=== PATIENT | female | born 1970 | race Hispanic/Latino ===

== ENCOUNTER → 2018-04-19 | Outpatient (CLI) | payer BC | LOC: MAMMO 17:23 | PROVIDERS: ATTEND Obstetrics & Gynecology | DX: Z12.31 Encounter for screening mammogram for malignant neoplasm of breast (principal) | CPT/HCPCS: 77067 ==

== ENCOUNTER → 2019-01-25 | Outpatient (CLI) | payer BC ==
[2019-01-25 08:48] LABS: BASOPHILS % 0.4 % (0.0-1.0); EOSINOPHILS # (AUTO) 0.1 (0.0-0.4); EOSINOPHILS % 1.3 % (0.0-6.0); HEMATOCRIT 39.3 % (34.2-44.1); HEMOGLOBIN 12.8 g/dL (12.0-16.0); LYMPHOCYTES # (AUTO) 2.3 (1.0-3.2); MEAN CORPUSCULAR HEMOGLOBIN 27.9 pg (28-32); MEAN CORPUSCULAR HGB CONC 32.6 g/dL (31-35); MEAN CORPUSCULAR VOLUME 85.6 fL (81-99); MONOCYTES # (AUTO) 0.4 (0.2-0.8); NEUTROPHILS # (AUTO) 4.1 (2.1-6.9); NEUTROPHILS % 58.9 % (38.7-80.0); PLATELET COUNT 382 x10e3/uL (140-360); RED BLOOD COUNT 4.59 x10e6/uL (3.6-5.1); RED CELL DISTRIBUTION WIDTH 13.6 % (11.7-14.4)
[2019-01-25 08:51] LABS: BILIRUBIN,URINE NEGATIVE (NEGATIVE); CLARITY,URINE SL CLOUDY (CLEAR); COLOR,URINE YELLOW (YELLOW); KETONES,URINE NEGATIVE (NEGATIVE); LEUKOCYTE ESTERASE ,URINE NEGATIVE (NEGATIVE); NITRITE,URINE NEGATIVE (NEGATIVE); PROTEIN,URINE DIPSTICK NEGATIVE (NEGATIVE); URINE UROBILINOGEN 0.2 mg/dL (0.2 - 1)
[2019-01-25 09:23] LABS: ALANINE AMINOTRANSFERASE 24 IU/L (0-55); ALBUMIN 3.5 g/dL (3.5-5.0); ALKALINE PHOSPHATASE 76 IU/L (40-150); ANION GAP 11.8 mmol/L (8-16); BLOOD UREA NITROGEN 11 mg/dL (7-26); BUN/CREATININE RATIO 16 (6-25); CALCIUM 8.9 mg/dL (8.4-10.2); CARBON DIOXIDE 24 mmol/L (22-29); CHLORIDE 103 mmol/L (98-107); CREATININE, SERUM 0.69 mg/dL (0.57-1.11); EST GLOMERULAR FILTRATION RATE > 60 ML/MIN (60-); GLUCOSE 92 mg/dL (74-118); POTASSIUM 3.8 mmol/L (3.5-5.1); SODIUM 135 mmol/L (136-145)
== END ==
LOC: LAB 08:27
PROVIDERS: ATTEND Surgery
DX: R77.1 Abnormality of globulin (principal)
CPT/HCPCS: 36415; 80053; 81003; 85025

== ENCOUNTER → 2019-05-16 | Outpatient (CLI) | payer BC ==
--- NOTE | 2019-05-20 08:34 | Diagnostic Imaging Report ---
#[id number] - MGSCRBIL #BILATERAL DIGITAL SCREENING MAMMOGRAM WITH CAD: 05/16/2019 CLINICAL: Routine screening. Comparison is made to exams dated: 04/19/2018 mammogram and 09/15/2016 mammogram - [facility]. Current study contains 4 films. The tissue of both breasts is heterogeneously dense. This may lower the sensitivity of mammography. Current study was also evaluated with a Computer Aided Detection (CAD) system. There is density with clustered fine calcifications in the right breast at 12 o'clock anterior depth. No other significant masses, calcifications, or other findings are seen in either breast. IMPRESSION: INCOMPLETE: NEEDS ADDITIONAL IMAGING EVALUATION The density with calcifications in the right breast is indeterminate. Magnification views as well as a possible ultrasound are recommended. The patient will be contacted by the Mammography Department to schedule this appointment. TALI MAE M.D. ct/:05/19/2019 16:05:51 Pinking Sewing Machine Operator: Naila PAINTING(Spring)(M), [facility] letter sent: Additional Imaging Needed Mammogram BI-RADS: 0 Indeterminate
== END ==
LOC: MAMMO 07:57
PROVIDERS: ATTEND Obstetrics & Gynecology
DX: Z12.31 Encounter for screening mammogram for malignant neoplasm of breast (principal)
CPT/HCPCS: 77067

== ENCOUNTER → 2019-05-31 | Outpatient (CLI) | payer BC ==
--- NOTE | 2019-05-31 16:12 | Diagnostic Imaging Report ---
#[id number] - USBRECOMRT ULTRASOUND OF THE RIGHT BREAST : 05/31/2019 Comparison is made to exams dated: 05/31/2019 mammogram and 05/16/2019 mammogram - [facility]. Color flow and real-time ultrasound were performed on the right breast. There are scattered cysts throughout the right breast, largest measuring approximately 10mm in size as seen within the 12 oclock position. The largest lesion contains layering calcification and corresponds to the mammographic abnormality seen on today's diagnostic mammogram. There is no suspicious mass within the right breast. IMPRESSION: PROBABLY BENIGN - FOLLOW-UP RECOMMENDED A follow-up right breast mammogram in 6 months is recommended to demonstrate stability of the indistinct calcifications seen on today's diagnostic mammogram, which most likely represent milk of calcium. The patient has been or will be contacted. Randall Wang M.D. km/:05/31/2019 15:19:13 Form Building Supervisor: Wojciech Smith [facility], [facility] letter sent: Followup Recommended Ultrasound BI-RADS: 3 Probably benign
--- NOTE | 2019-05-31 16:12 | Diagnostic Imaging Report ---
#[id number] - MGDXRT #UNILATERAL RIGHT DIGITAL DIAGNOSTIC MAMMOGRAM WITH SPOT COMPRESSION AND MAGNIFICATION: 05/31/2019 Comparison is made to exams dated: 05/16/2019 mammogram and 04/19/2018 mammogram - [facility]. Comparison also made to bilateral breast ultrasound of same date. The tissue of the right breast is heterogeneously dense. This may lower the sensitivity of mammography. There are clustered indistinct calcifications in the right breast at 12 o'clock middle depth associated with a circumscribed 11mm nodule. On the lateral view, there is questionable layering of the calcifications. Correlation with right breast ultrasound of same date demonstrates a cyst in the same postion of the breast containing internal layering calcifications. Overall, the findings are most suggestive of milk of calcium within a cyst. No other significant masses or calcifications are seen in the breast. IMPRESSION: PROBABLY BENIGN The clustered indistinct calcifications in the right breast are most suggestive of milk of calcium and are probably benign. A follow-up diagnostic right breast mammogram in 6 months is recommended. A follow-up mammogram in 6 months is recommended to demonstrate stability. The patient has been or will be notified of the results. Randall Wang M.D. km/:05/31/2019 15:10:40 Review Analyst: Naila SENIOR)(Barbara), [facility] letter sent: Followup Recommended Mammogram BI-RADS: 3 Probably benign
--- NOTE | 2019-05-31 16:12 | Diagnostic Imaging Report ---
#[id number] - USBRECOMLT ULTRASOUND OF THE LEFT BREAST : 05/31/2019 Comparison is made to exams dated: 05/31/2019 mammogram and 05/16/2019 mammogram - [facility]. Color flow and real-time ultrasound were performed on the left breast. There are scattered simple appearing cysts throughout the left breast which measure up to 6mm in size. An isoechoic solid nodule with circumscribed borders is noted within the 10 o clock position of the left breast measuring 11mm in size, most suggestive of a fibroadenoma. Findings overall suggestive of fibrocystic breast disease. No suspicious mass is seen within the breast. IMPRESSION: BENIGN There is no sonographic evidence of malignancy. A 1 year screening mammogram is recommended to evaluate the left breast. Please see report of right breast diagnostic mammogram and ultrasound from same date for follow up recommendations for the right breast. Randall Wang M.D. km/:05/31/2019 15:14:51 Batting Machine Operator: Wojciech Smith RDND, [facility] Ultrasound BI-RADS: 2 Benign
== END ==
LOC: MAMMO 12:59
PROVIDERS: ATTEND Obstetrics & Gynecology
DX: R92.2 Inconclusive mammogram (principal); R92.1 Mammographic calcification found on diagnostic imaging of breast

== ENCOUNTER → 2019-12-13 | Outpatient (CLI) | payer BC ==
--- NOTE | 2019-12-14 08:57 | Diagnostic Imaging Report ---
#[id number] - MGDXRT #UNILATERAL RIGHT DIGITAL DIAGNOSTIC MAMMOGRAM WITH CAD SHORT-TERM FOLLOW-UP: 12/13/2019 Comparison is made to exams dated: 05/31/2019 mammogram, 05/16/2019 mammogram and 04/19/2018 mammogram - [facility]. The tissue of the right breast is heterogeneously dense. This may lower the sensitivity of mammography. Current study was also evaluated with a Computer Aided Detection (CAD) system. There are benign calcifications and a mass in the right breast. No significant masses, calcifications, or other findings are seen in the breast. There has been no significant interval change. IMPRESSION: BENIGN There is no mammographic evidence of malignancy. Return to annual mammogram screening schedule is recommended. The patient will be notified by letter of the results. ABBEY ALVARADO M.D. kw/:12/13/2019 17:13:50 Bulb Grader: Naila PAINTING(Spring)(Barbara), [facility] letter sent: Compared to Prior B9 Mammogram BI-RADS: 2 Benign
== END ==
LOC: MAMMO 12:12
PROVIDERS: ATTEND Obstetrics & Gynecology
DX: R92.1 Mammographic calcification found on diagnostic imaging of breast (principal)

== ENCOUNTER → 2020-05-31 | Outpatient (CLI) | payer BC | LOC: MAMMO 11:47 | PROVIDERS: ATTEND Obstetrics & Gynecology | DX: Z12.31 Encounter for screening mammogram for malignant neoplasm of breast (principal) | CPT/HCPCS: 77067 ==

== ENCOUNTER → 2021-01-23 | Outpatient (CLI) | payer BC | LOC: MAMMO 12:47 | PROVIDERS: ATTEND Obstetrics & Gynecology | DX: Z12.31 Encounter for screening mammogram for malignant neoplasm of breast (principal) ==

== ENCOUNTER → 2021-06-12 | Outpatient (CLI) | payer BC | LOC: MAMMO 10:00 | PROVIDERS: ATTEND Obstetrics & Gynecology | DX: Z12.31 Encounter for screening mammogram for malignant neoplasm of breast (principal) | CPT/HCPCS: 77067 ==

== ENCOUNTER → 2023-03-02 | Outpatient (CLI) | payer BC | LOC: MAMMO 16:46 | PROVIDERS: ATTEND Obstetrics & Gynecology | DX: Z12.31 Encounter for screening mammogram for malignant neoplasm of breast (principal) | CPT/HCPCS: 77067 ==

== ENCOUNTER → 2025-03-14 | Outpatient (REF) | payer BC | LOC: MAMMO 16:20 | PROVIDERS: ATTEND Obstetrics & Gynecology | DX: Z12.31 Encounter for screening mammogram for malignant neoplasm of breast (principal) | CPT/HCPCS: 77067 ==